=== PATIENT | male | born 1950 | race Caucasian/White ===

== ENCOUNTER 2020-06-26 09:38 | Emergency (ER) | payer OTHER ==
[2020-06-26 10:49] LABS: BASOPHIL 0.4 % (0-2); EOSINOPHIL 1.9 % (0-7); HCT 41.9 % (42.0-52.0); HGB 13.8 g/dl (13.2-18.0); MCH 29.6 pg (25.0-31.0); MCHC 32.9 g/dL (32.0-36.0); MCV 89.9 fL (78.0-100.0); MONOCYTE 8.8 % (0-12); MPV 9.7 fL (6.0-9.5); NEUTROPHIL 73.4 % (41-80); NRBC 0; PLT 446 K/uL (150-400); RBC 4.66 M/uL (4.70-6.00); RDW 11.9 % (11.5-14.0); WBC 9.8 K/uL (4.0-10.5)
[2020-06-26 10:53] LABS: INR 1.24 (0.9-1.2); PROTHROMBIN TIME 14.8 SECONDS (11.4-13.6); PTT 36.4 SECONDS (22.2-34.7)
[2020-06-26 11:08] LABS: ALBUMIN 2.6 g/dL (3.4-5.0); BILIRUBIN - TOTAL 0.4 mg/dL (0.2-1.0); BUN/CREAT RATIO (CALC) 11.4 RATIO; C-REACTIVE PROTEIN 3.6 mg/dL (<=0.90); CREATININE 2.29 mg/dL (0.67-1.17); GLOBULIN (CALCULATION) 4.6 g/dL; POTASSIUM 4.5 mmol/L (3.5-5.1); TOTAL PROTEIN 7.2 g/dL (6.4-8.2)
[2020-06-26 11:20] LABS: LACTIC ACID 1.2 mmol/L (0.4-1.9)
[2020-06-26 12:39] LABS: BILIRUBIN NEGATIVE (NEGATIVE); BLOOD TRACE-INTACT Ery/uL (NEGATIVE); CLARITY CLEAR (CLEAR); COLOR YELLOW (YELLOW); GLUCOSE (U) NORMAL (NORMAL); LEUKOCYTES NEGATIVE Leu/uL (NEGATIVE); NITRITE NEGATIVE (NEGATIVE); PROTEIN 2+ mg/dL (NEGATIVE); UROBILINOGEN 0.2 mg/dL (0.2-1.0)
[2020-06-26 12:44] LABS: CORONAVIRUS 2019 SARS-COV-2 NEGATIVE (NEGATIVE); INFLUENZA A NAA NEGATIVE (NEGATIVE)
[2020-06-26 12:49] LABS: BACTERIA TRACE; SQUAMOUS EPITHELIAL CELLS RARE; URINARY WBC RARE
== END 2020-06-26 14:09 | disposition other institution (70) ==
LOC: FER 09:38
PROVIDERS: Emergency Medicine
DX: I16.0 Hypertensive urgency (principal); I11.0 Hypertensive heart disease with heart failure; I50.9 Heart failure, unspecified; I21.4 Non-ST elevation (NSTEMI) myocardial infarction; J90 Pleural effusion, not elsewhere classified; N17.9 Acute kidney failure, unspecified; R21 Rash and other nonspecific skin eruption; I44.7 Left bundle-branch block, unspecified; Z20.822 Contact with and (suspected) exposure to COVID-19
CPT/HCPCS: 36415; 71045; 80053; 81001; 83605; 83735; 83880; 84484; 85025; 85610; 85730; 86140; 87040; 93005; J1644; J1940; J3490; U0002

== ENCOUNTER 2021-11-05 21:00 | Emergency (ER) | payer OTHER ==
[2021-11-05 22:02] LABS: BASOPHIL 0.5 % (0-2); EOSINOPHIL 2.8 % (0-7); HCT 42.7 % (42.0-52.0); HGB 14.3 g/dl (13.2-18.0); LYMPHOCYTE 21.1 % (15-48); MCH 31.4 pg (25.0-31.0); MCHC 33.5 g/dL (32.0-36.0); MCV 93.6 fL (78.0-100.0); MONOCYTE 7.8 % (0-12); NEUTROPHIL 67.4 % (41-80); NRBC 0.2; PLT 325 K/uL (150-400); RBC 4.56 M/uL (4.70-6.00); RDW 13.7 % (11.5-14.0); WBC 9.6 K/uL (4.0-10.5)
[2021-11-05 22:23] LABS: ALBUMIN 3.8 g/dL (3.4-5.0); BILIRUBIN - TOTAL 0.4 mg/dL (0.2-1.0); BUN/CREAT RATIO (CALC) 15.5 RATIO; CREATININE 3.28 mg/dL (0.67-1.17); GLOBULIN (CALCULATION) 4.5 g/dL; POTASSIUM 4.4 mmol/L (3.5-5.1); TOTAL PROTEIN 8.3 g/dL (6.4-8.2)
[2021-11-06 00:09] LABS: INR 1.1 (0.9-1.2); PROTHROMBIN TIME 13.6 SECONDS (11.8-13.4)
[2021-11-06 00:10] LABS: PTT 31.7 SECONDS (24.4-34.7)
[2021-11-06 00:26] LABS: BILIRUBIN NEGATIVE (NEGATIVE); BLOOD NEGATIVE Ery/uL (NEGATIVE); CLARITY CLEAR (CLEAR); COLOR YELLOW (YELLOW); GLUCOSE (U) NORMAL (NORMAL); LEUKOCYTES NEGATIVE Leu/uL (NEGATIVE); NITRITE NEGATIVE (NEGATIVE); PROTEIN 1+ mg/dL (NEGATIVE); SPECIFIC GRAVITY 1.015 (1.001-1.030); UROBILINOGEN 0.2 mg/dL (0.2-1.0)
[2021-11-06 00:33] LABS: MUCOUS TRACE; URINARY RBC RARE; URINARY WBC RARE
[2021-11-06] MEDS ORDERED: SENNA PLUS 8.61 EACH PO (01:52)
[2021-11-06] MEDS ORDERED: MIRALAX 238GM238 GM PO (01:52)
[2021-11-06] MEDS ORDERED: PERCOCET 5-3251 EACH PO (01:52)
[2021-11-06] MEDS ORDERED: CYCLOBENZAPRINE10 MG PO (01:52)
== END 2021-11-06 02:07 | disposition home or self-care (01) ==
LOC: FER 21:00
PROVIDERS: Internal Medicine
DX: R10.11 Right upper quadrant pain (principal); N18.4 Chronic kidney disease, stage 4 (severe); I87.8 Other specified disorders of veins; Z20.822 Contact with and (suspected) exposure to COVID-19
CPT/HCPCS: 36415; 80053; 81001; 83605; 83690; 84145; 84484; 85025; 85610; 85730; 87040; 93005; J1170; J2405; J3010; J7120; U0002